=== PATIENT | female | born 1970 | race African-American/Black ===

== ENCOUNTER → 2020-12-17 13:23 | Outpatient (BNVA) | payer BC, SELFPAY | PROVIDERS: Visit Provider Urology ==

== ENCOUNTER 2022-01-14 08:34 | Outpatient (REF) | payer BC, SELFPAY ==
--- NOTE | ~2022-01-14 | US_ITS ---
EXAMINATION: US RETROPERITONEAL LIMITED (RENAL ONLY) CLINICAL INFORMATION: Calculus of kidney. COMPARISON: X-ray abdomen KUB 05/22/2020. TECHNIQUE: Real-time imaging of the kidneys. FINDINGS: RIGHT KIDNEY: 10.3 x 3.7 x 4.4 cm (SAG x AP x TRV). The kidney is normal in size, contour, and echogenicity. Renal cortical thickness is normal. There is a 2 x 3 mm echogenic density in the lower pole of the right kidney questionable for a small stone. No focal parenchymal lesions or hydronephrosis. LEFT KIDNEY: 11.0 x 6.0 x 4.8 cm (SAG x AP x TRV). The kidney is normal in size, contour, and echogenicity. Renal cortical thickness is normal. There is mild left hydronephrosis. There is a stone versus a cluster of stones in the central left kidney measuring 1.6 x 1 x 1.6 cm. No focal parenchymal lesions. US/US renal BI IMPRESSION: Central large stone versus cluster of stones in the midpole of the left kidney measuring 1.6 x 1 x 1.6 cm and mild left hydronephrosis. Question small right renal stone.
== END 2022-01-14 08:35 | disposition home or self-care (01) ==
LOC: HO.US 08:34
PROVIDERS: Visit Provider Urology
DX: N20.0 Calculus of kidney (principal)
CPT/HCPCS: 76775

== ENCOUNTER → 2022-02-22 13:31 | Outpatient (BNVA) | payer BC, SELFPAY | PROVIDERS: Visit Provider Urology | DX: Z13.89 Encounter for screening for other disorder (principal) ==

== ENCOUNTER → 2023-02-21 10:49 | Outpatient (BNVA) | payer BC, SELFPAY | PROVIDERS: PCP Internal Medicine Endocrinology, Diabetes & Metabolism; Visit Provider Urology | DX: Z13.89 Encounter for screening for other disorder (principal) ==

== ENCOUNTER 2024-01-26 08:27 | Outpatient (REF) | payer BC, SELFPAY ==
--- NOTE | ~2024-01-26 | US_ITS ---
EXAMINATION: US RETROPERITONEAL LIMITED (RENAL ONLY) CLINICAL INFORMATION: Calculus of kidney. COMPARISON: Renal ultrasound 01/14/2022. TECHNIQUE: Real-time imaging of the kidneys. FINDINGS: RIGHT KIDNEY: 9.8 x 4.2 x 5.4 cm (SAG x AP x TRV). The kidney is normal in size, contour, and echogenicity. Renal cortical thickness is normal. No focal parenchymal lesions or hydronephrosis. 2 mm nonobstructing calculus in the mid kidney. LEFT KIDNEY: 10.7 x 3.7 x 6.3 cm (SAG x AP x TRV). The kidney is normal in size, contour, and echogenicity. Renal cortical thickness is normal. No renal calculi or hydronephrosis. 2.5 cm calculus in the renal pelvis without hydronephrosis. US/US renal BI IMPRESSION: 2.5 cm calculus in the left renal pelvis without hydronephrosis. 2 mm calculus in the mid right kidney without hydronephrosis.
== END 2024-01-26 08:28 | disposition home or self-care (01) ==
LOC: HO.HMGCX 08:27
PROVIDERS: Visit Provider Urology
DX: N20.0 Calculus of kidney (principal)
CPT/HCPCS: 76775

== ENCOUNTER 2024-02-20 09:29 | Outpatient (AMB) | payer BC, SELFPAY ==
--- NOTE | 2024-02-20 09:34 | MHC.OFFVIS ---
Intake Visit Reasons: 1Y US(set) Intake Note: Patient is Present for Follow Up Urology Medication: Vitamin B6 Antibiotic Allergies: Penicillin, Erythromycin Blood Thinners:None Allergies Penicillins Allergy (Mild, Verified 02/20/24 09:35) Unknown Erythromycin Allergy (Mild, Uncoded 02/20/24 09:35) Unknown Medication List - Last Reconciled 02/20/24 by Carlos Champagne MD atorvastatin 10 mg PO DAILY doxycycline monohydrate 1 cap PO DAILY minoxidil 2.5 mg PO DAILY PRN pyridoxine (vitamin B6) 50 mg PO DAILY 90 days HPI Comments Details: Silvana Houser is a very pleasant female. She is a patient of Dr. Hayes. She is seen for the following urologic conditions. - nephrolithiasis Imaging shows continued left-sided caliceal cluster on renal ultrasound Review in 12 months Continue vitamin B6 Nephrolithiasis/Urolithiasis: KUB normal Refill vitamin B6 See in 12 months They are here for further evaluation of nephrolithiasis - has stone cluster on left side which a calyceal. Urolithiasis was diagnosed 2006. Has continued with microscopic hematuria.. Prior treatment(s) include lithotripsy 06/11 R [facility]. Prior imaging includes a CT (computed tomography) scan of the abdomen/pelvis (stone protocol) January 2015. Left upper pole calyceal diverticulum. Multiple small stones maximum 3.7 mm. 2 mm calyceal calculus in the left mid kidney, 2 mm calyceal calculus at the lower pole on the right kidney. - 03/08 - calyceal cluster on left - 03/09 , a renal ultrasound, a KUB x-ray - stable calyceal cluster on left, 4mm stone on right - 03/10 , a renal ultrasound, showing radiodense stone(s), 4 mm right, cluster on left 05/11 , a [facility]UB x-ray, , bilateral stone clusters 02/11 renal ultrasound left stone cluster question calcification on right - 02/13 ultrasound stable calyceal stone cluster left side Current therapeutic plan will be to continue with imaging surveillance, General advice to maintain good fluid intake for urine greater than 1.5 L per day, reduce salt and reduce protein and acid loads was provided.. Current symptoms include None . Cystoscopy of December 2014 negative. Cytology December 2014 negative . UA persistent today for microscopic hematuria. We discussed other causes PFSH Medical History Calyceal diverticulum High cholesterol Microscopic hematuria Surgical History History of lithotripsy Previous section Review of Systems Const Denies chills and Denies fever(s) Card Reports no additional complaints and Denies syncope Resp Denies cough GI Denies abdominal pain and Denies heartburn Reports as per HPI and Denies change in libido Neuro Denies syncope Psych Denies change in libido Endo Denies change in libido Physical Exam Const General: cooperative, healthy appearing, comfortable and no acute distress Orientation/consciousness: patient oriented x3 HEENT Face and sinus: Yes normal facial exam Mouth: moist mucous membranes Neck Neck: Yes normal visual inspection, Yes full ROM and Yes trachea midline Chest Chest palpation & inspection: normal inspection of the chest Resp Effort & Inspection: normal respiratory effort, able to speak in complete sentences and no respiratory distress GI Inspection: Yes normal to inspection Back/Spine/Pelvis Cervical Spine: normal cervical lordosis Thoracic/Lumbar Spine: thoracic and lumbar spine normal to inspection Skin General skin exam: no rashes or lesions noted Neuro General: patient oriented x3, gait normal, tone normal and moves all extremities Extrem General: Yes normal to inspection and Yes capillary refill normal Assessment & Plan Assessment & Plan (1) Nephrolithiasis: Code(s): N20.0 - Calculus of kidney Category: Medical Plan One year follow-up imaging Orders: Orders XR KUB 1 Year N20.0 - Calculus of kidney Medications: Refilled pyridoxine (vitamin B6) 50 mg PO DAILY 90 days 90 tabs 3RF N20.0 - Calculus of kidney Patient Instructions: Imaging studies, laboratory and physical exam results were discussed and reviewed in detail. No major barriers to patient understanding were identified. An opportunity to ask questions regarding the treatment plan was provided. All questions were answered. The patient expressed understanding and agreement with the above treatment plan. The patient is aware they should contact our office by phone for worsening of their current condition or the appearance of new urologic symptoms. Compliance is encouraged with any medications and followup testing that is ordered. It is a privilege to participate in the urologic care of your patient. If you have any questions or concerns regarding treatment for the above conditions, or other urologic issues, please do not hesitate to contact me. The office telephone contact is [phone]. This note is constructed using voice recognition software. While every effort has been made to ensure accuracy barrel coater errors may have been included. Yours sincerely, Dr Carlos Champagne MD, [facility] - Urology Providers of Expert, Compassionate Care for the Genitourinary System Coding Level of Care Code Est Pt Level 4 (10331) Diagnoses Nephrolithiasis N20.0
== END 2024-02-20 10:03 | disposition home or self-care (01) ==
PROVIDERS: Visit Provider Urology
DX: N20.0 Calculus of kidney (principal)
CPT/HCPCS: 99213

== ENCOUNTER → 2024-02-20 09:29 | Outpatient (BNVA) | payer BC, SELFPAY | PROVIDERS: Visit Provider Urology ==

== ENCOUNTER 2025-05-02 09:06 | Outpatient (AMB) | payer BC, SELFPAY ==
--- NOTE | 2025-05-02 09:07 | MHC.OFFVIS ---
Intake Visit Reasons: Follow up/ KUB Intake Note: Patient is present for KUB F/U Urology Medication:VITAMIN B6 Antibiotic Allergy:PENICILLINS,ERYTHROMYCIN Blood Thinner:NONE Accounts Receivable Associate Required: No Allergies Penicillins Allergy (Mild, Verified 05/02/25 09:09) Unknown Erythromycin Allergy (Mild, Uncoded 05/02/25 09:09) Unknown HPI Comments Details: Silvana Houser is a very pleasant female. She is a patient of Dr. Hayes. She is seen for the following urologic conditions. - nephrolithiasis Imaging shows continued left-sided caliceal cluster on KUB Continue vitamin B6 She would like to continue 12 month follow-up Nephrolithiasis/Urolithiasis: KUB normal Refill vitamin B6 See in 12 months They are here for further evaluation of nephrolithiasis - has stone cluster on left side which a calyceal. Urolithiasis was diagnosed 2006. Has continued with microscopic hematuria.. Prior treatment(s) include lithotripsy 06/11 [facility]. Prior imaging includes a CT (computed tomography) scan of the abdomen/pelvis (stone protocol) January 2015. Left upper pole calyceal diverticulum. Multiple small stones maximum 3.7 mm. 2 mm calyceal calculus in the left mid kidney, 2 mm calyceal calculus at the lower pole on the right kidney. - 03/08 - calyceal cluster on left - 03/09 , a renal ultrasound, a KUB x-ray - stable calyceal cluster on left, 4mm stone on right - 03/10 , a renal ultrasound, showing radiodense stone(s), 4 mm right, cluster on left 05/11 , a KUB x-ray, , bilateral stone clusters 02/11 renal ultrasound left stone cluster question calcification on right - 02/13 ultrasound stable calyceal stone cluster left side - 03/16 KUB stone cluster Current therapeutic plan will be to continue with imaging surveillance, General advice to maintain good fluid intake for urine greater than 1.5 L per day, reduce salt and reduce protein and acid loads was provided.. Current symptoms include None . Cystoscopy of December 2014 negative. Cytology December 2014 negative . UA persistent today for microscopic hematuria. We discussed other causes [facility] Medical History (Updated 05/02/25 @ 09:29 by Carlos Champagne MD) High cholesterol Microscopic hematuria Calyceal diverticulum Surgical History Previous section History of lithotripsy Review of Systems Const Denies chills and Denies fever(s) Card Reports no additional complaints and Denies syncope Resp Denies cough GI Denies abdominal pain and Denies heartburn Reports as per HPI and Denies change in libido Neuro Denies syncope Psych Denies change in libido Endo Denies change in libido Physical Exam Const General: cooperative, healthy appearing, comfortable and no acute distress Orientation/consciousness: patient oriented x3 HEENT Face and sinus: Yes normal facial exam Mouth: moist mucous membranes Neck Neck: Yes normal visual inspection, Yes full ROM and Yes trachea midline Chest Chest palpation & inspection: normal inspection of the chest Resp Effort & Inspection: normal respiratory effort, able to speak in complete sentences and no respiratory distress GI Inspection: Yes normal to inspection Back/Spine/Pelvis Cervical Spine: normal cervical lordosis Thoracic/Lumbar Spine: thoracic and lumbar spine normal to inspection Skin General skin exam: no rashes or lesions noted Neuro General: patient oriented x3, gait normal, tone normal and moves all extremities Extrem General: Yes normal to inspection and Yes capillary refill normal Assessment & Plan Assessment & Plan (1) Nephrolithiasis: Code(s): N20.0 - Calculus of kidney Category: Medical (2) Calyceal diverticulum: Code(s): N28.89 - Other specified disorders of kidney and ureter Category: Medical Plan Twelve month follow-up Orders: Orders XR KUB 12 Months N20.0 - Calculus of kidney Patient Instructions: This note is constructed using voice recognition software. While every effort has been made to ensure accuracy technical service rep errors may have been included. Imaging studies, laboratory and physical exam results were discussed and reviewed in detail. No major barriers to patient understanding were identified. An opportunity to ask questions regarding the treatment plan was provided. All questions were answered. The patient expressed understanding and agreement with the above treatment plan. The patient is aware they should contact our office by phone for worsening of their current condition or the appearance of new urologic symptoms. Compliance is encouraged with any medications and followup testing that is ordered. It is a privilege to participate in the urologic care of your patient. If you have any questions or concerns regarding treatment for the above conditions, or other urologic issues, please do not hesitate to contact me. The office telephone contact is [phone]. Sincerely, Dr Carlos Champagne MD, [facility] - Urology Compassionate Specialist Care for the Genitourinary System Coding Level of Care Code Est Pt Level 4 (08073) Diagnoses Nephrolithiasis N20.0 Calyceal diverticulum N28.89
--- OUTSIDE RECORDS SUMMARY | 2025-05-02 09:20 | XMS_ITS | Clinical Summary ---
Author Organization [facility] Address [address] [place] [address] Care Team Providers Care Gear Repairer Name Role Phone Unavailable Primary Care Provider Unavailabl e Source Comments PLEASE NOTE, if this patient is a minor, it may be UNLAWFUL to discuss sensitive information that is contained in these records (such as FAMILY PLANNING, MENTAL HEALTH or SUBSTANCE ABUSE) with the minor patient's parent or other person without the patient's specific authorization.[facility] Immunizations Immunization Administration Dates Next Due PFIZER COVID VACCINE, PURPLE CAP, 12+ 08/31/2021 Social History Tobacco Use Types Packs/Day Years Used Date Smoking Tobacco: Never Assessed Social Connections Answer Date Recorded Connectedness 0 07/04/2024 Financial Resource Strain Answer Date R ecorded Financial Resource Strain 0 2021 Stress Answer Date Recorded Stress 0 12/08/2021 Physical Activity Answer Date Recorded Physical Activity 0 12/08/2021 Food Insecurity Answer Date Recorded Food 0 07/18/2024 Transportation Needs Answer Date Record ed Transportation 0 12/08/2021 Housing Stability Answer Date Recorded Housing 0 12/08/2021 Safety and Environment Answer Date Chavo rded Safety 0 12/08/2021 Utilities Answer Date Recorded Utilities 0 12/08/2021 Employment Answer Date Recorded Stress 0 07/04/2024 Comments Unknown Sex and Gender Information Value Date Recorded Sex Assigned at Not on file Legal Sex Female 5:40 AM PDT Gender Identity Not on file Sexual Orientation Not on file Plan of Treatment Health Maintenance Due Date Last Done Comments Anxiety Screening 1968 Diabetes Screening 1968 HPV Screening 1968 Hepatitis C Screening 1968 Lipid Screening 1968 Pap + HPV 1968 Tobacco Screening 1968 HIV Screening 1983 Hypertension Screening (#1) 1986 Imm-Hepatitis B (1 of 3 - 19 + 3-dose series) 1987 Cervical Cancer Screening 1989 Pap Smear 1989 Breast Cancer Screening (Mammogram) 2008 CT Colonography 2013 Colonoscopy 2013 Colorectal Cancer Screening 2013 FIT/gFOBT 2013 Fecal DNA 2013 Flexible Sigmoidoscopy 2013 Imm-Zoster, Recombinant (1 of 2) 2018 Imm-DTaP/Tdap/Td (2 - Td or Tdap) 07/06/2022 012, 03/30/2007 Plv-CDAOH-31 ( season) 2024 08/31/2021, 02/11/2021, 01/21/2021 Alcohol and Drug Screen 10/23/2024 Depression Annual Screen 10/23/2024 Imm-Influenza (Season Ended) 2025 Cervical Ablation/Cold-Knife Conization Discontinued Cervical Cryotherapy Discontinued Colposcopy Discontinued Endometrial Biopsy Discontinued Excision/Leep Discontinued HPV Genotyping Discontinued Vaginal Pap Discontinued Vulvoscopy Discontinued Insurance BLUE CROSS/BS [place]ARI
--- OUTSIDE RECORDS SUMMARY | 2025-05-02 09:20 | XMS_ITS | Clinical Summary ---
Author Organization [facility] [address] [facility] Address [address] [place] [address] Phone Care Team Providers Care Locker Operator Name Role Phone Melissa Goodwin DO Primary Care Provider [phone] Encounters Date Type Department Care Team Description 04/12/2025 10:54 AM EDT - 04/12/2025 11:59 PM EDT Hospital Encounter Radiology Department - [address] [phone] Encounter for screening mammogram for breast cancer Discharge Disposition: Home or Self Care 02/21/2025 1:04 PM EDT - 02/21/2025 11:59 PM EDT [facility] [address] [place] [address] Calculus of kidney Discharge Disposition: Home or Self Care from Last 3 Months Surgical History Surgery Date Site/Laterality Comments SECTION PROCEDURE: AR DELIVERY ONLY; COMMENT: x 2 COLONOSCOPY 04/23/07 PROCEDURE: AR COLONOSCOPY STOMA DX INCLUDING COLLJ SPEC SPX; COMMENT: normal, incomplete OTHER SURGICAL HISTORY 04/28 PROCEDURE: CHG RADIOLOGIC EXAM COLON DOUBLE CONTRAST STUDY; COMMENT: neg TUBAL LIGATION 07/30 PROCEDURE: HISTORICAL TUBAL LIGATION; COMMENT: COLONOSCOPY 05/30/2014 PROCEDURE: AR COLONOSCOPY FLX DX W/COLLJ SPEC WHEN PFRMD; COMMENT: Neg to cecum. R 2023 Medical History Medical History Date Comments Urinary calculus, unspecified 03/09/2007 DX :Urinary calculus, unspecified; COMMENT: Lithotripsy Hematuria 12/04/2009 DX:Hematuria GI bleed 12/04/2009 DX:GI bleed Cholelithiasis 02/29/2016 DX:Cholelithiasi s Family History Medical History Relation Name Comments Colon cancer Aunt 1 maternal aunt 1 Colon cancer Aunt 2 maternal aunt 3 Breast cancer Aunt 3 m.aunt maternal aunt 4 No Known Problems Brother No Known Problems Father No Known Problems Maternal Grandfather Diabetes Maternal Grandmother Hypertension Maternal Grandmother No Known Problems Mother Thyroid disease Other 1 Niece & Neph ew Uterine cancer Other 2 maternal 1st cousin 1 Colon cancer Other 3 niece 1 Breast cancer Other 4 maternal 1st c ousin 2 Breast cancer Other 5 maternal great aunt 1 No Known Problems Paternal Grandfather Diabetes Paternal Grandmother No Known Problems Sister Other: Diabetes Mellitus Uncle 1 mat ; niece Colon cancer Uncle 2 maternal uncle 1 Colon cancer Uncle 3 maternal uncle 2 Blindness Neg Hx Breast cancer Neg Hx Cataracts Neg Hx Glaucoma Neg Hx Macular degeneration Neg Hx Strabismus Neg Hx Relation Name Status Comments Aunt 1 Aunt 2 Aunt 3 m.aunt Brother Father Maternal Grandfather Maternal Grandmother Mother Other 1 Other 2 Other 3 Other 4 Other 5 Paternal Grandfather Paternal Grandmother Sister Uncle 1 Uncle 2 Uncle 3 Social History Tobacco Use Types Packs/Day Years Used Date Smoking Tobacco: Never Smokeless Tobacco: Never Alcohol Use Standard Drinks/Week Comments Not Currently 0 (1 standard drink = 0.6 oz pur e alcohol) Comments Unknown Sex and Gender Information Value Date Recorded Sex Assigned at Not on file Legal Sex Female 6:46 AM EST Gender Identity Not on file Sexual Orientation Not on file Obstetrics History Para Term AB IAB SAB Ectopic Multiple Livin g Live Births 2 2 2 2 Date Outcome GA Total Labor Labor/2nd/3rd Weight Sex Type Anes PTL Camryn A1 A5 Name Clin Term Term Last Filed Vital Signs Vital Sign Reading Time Taken Comments Blood Pressure 118/78 2023 2:53 PM EST Sit ting R Leg Pulse 71 2023 2:53 PM EST Temperature - - Respiratory Rate - - Oxygen Saturation - - Inhaled Oxygen Concentration - - Weight 71.2 kg (157 lb) 2023 2:53 PM EST Height 154.9 cm (5' 1 ) 2023 2:53 PM EST Body Mass Index 29.67 2023 2:53 PM EST Plan of Treatment Upcoming Encounters Date Type Department Care Team (Late st Contact Info) Description 06/10/2025 2:00 PM EDT Office Visit Internal Medicine - [facility] [address] [place], [place] [phone] Lizbet Snow NP [address] [place] [address] Health Maintenance Due Date Last Done Comments Hepatitis B Vaccines (1 of 3 - 19+ 3-dose series) 1987 Pneumococcal Vaccine: 50+ Years (1 of 1 - PCV) 2018 Zoster Vaccines (1 of 2) 2018 Cervical Cancer Screening: Pap Smear 06/28/2022 06/28/2019 Cholesterol Screening (Lipid Panel) 10/01/2022 Colorectal Cancer Screening: Colonoscopy 10/01/2022 Depression Screening 10/01/2022 HIV Screening 10/01/2022 Hepatitis C Screening 10/01/2022 Social Influencers of Health Screening 10/01/2022 COVID-19 Vaccine (4 - season) 2024 08/31/2021, 02/11/2021, 01/21/2021 Influenza Vaccine (#1) 2025 Breast Cancer Screening 04/12/2027 04/12/20, 03/23/2024, 03/23/2024, Additional history exists DTaP,Tdap,and Td Vaccines (4 - Td or Tdap) 01/04/2033 01/04/2023, 07/06/2012, 03/30/2007 HIB Vaccines Aged Out No longer eligi ble based on patient's age to complete this topic HPV Vaccines Aged Out No longer eligi ble based on patient's age to complete this topic Hepatitis A Vaccines Aged Out No long er eligible based on patient's age to complete this topic IPV Vaccines Aged Out No longer eligi ble based on patient's age to complete this topic MMR Vaccines Aged Out No longer eligi ble based on patient's age to complete this topic Meningococcal ACWY Vaccine Aged Out N o longer eligible based on patient's age to complete this topic Meningococcal B Vaccine Aged Out No l onger eligible based on patient's age to complete this topic Pneumococcal Vaccine: Pediatrics (0 to 5 Years) and At-Risk Patients (6 to 49 Years) Aged Out No longer eligible based on patient's age to complete this topic RSV Immunization Patients Under 20 months Aged Out No longer eligible based on patient's age to complete this topic Varicella Vaccines Aged Out No longer eligible based on patient's age to complete this topic Procedures Procedure Name Priority Date/Time Associated Diagnosis Comments MG MAMMO DIGITAL SCREENING W CARRIE BILAT Routine 04/12/2025 11:09 AM EDT Encounter for screening mammogram for breast cancer XR ABDOMEN 1 VIEW Routine 02/21/2025 1:1 3 PM EDT Calculus of kidney PAP SMEAR Routine 06/28/2019 from Last 3 Months or Most Recently Relevant to Health Maintenance Results * MG Mammo Digital Screening w Carrie bilat (04/12/2025 11:09 AM EDT) Anatomical Region Laterality Modality Breast Bilateral Mammography 04/14/2025 4:04 PM EDT Impressions 04/14/2025 4:04 PM EDT No mammographic evidence of malignancy. BREAST DENSITY: C - The breasts are heterogeneously dense which may obscure small masses. BI-RADS CATEGORY: 1 - NEGATIVE RECOMMENDATION: Screening bilateral mammogram is recommended in 1 year. MAMMO LOCATION: [facility], [address] [place] [address], [id number], . -------- FINAL REPORT -------- Dictated By: Fannie Daley Dictated Date: 04/14/2025 16:04 ET Assigned Physician: Fannie Daley Reviewed and Electronically Signed By: Fannie Daley Signed Date: 04/14/2025 16:04 ET Workstation ID: [id number] Transcribed By: Self Edit Transcribed Date: 04/14/2025 16:04 ET Narrative 04/14/2025 4:04 PM EDT EXAM: Screening Mammogram CLINICAL: 54 years old, Female, routine annual exam. COMPARISON: 03/23/2024 and as far back as 01/28/2021 TECHNIQUE: Bilateral MLO and CC views were obtained digitally with 3-D mammogram (digital breast tomosynthesis). Computer-aided detection was utilized in evaluation of this exam (CAD). FINDINGS: No new suspicious mass, architectural distortion, or suspicious calcifications. Procedure Note Fannie Daley MD - 04/14/2025 EXAM: Screening Mammogram CLINICAL: 54 years old, Female, routine annual exam. COMPARISON: 03/23/2024 and as far back as 01/28/2021 TECHNIQUE: Bilateral MLO and CC views were obtained digitally with 3-Dmammogram (digital breast tomosynthesis). Computer-aided detection wasutilized in evaluation of this exam (CAD). FINDINGS: No new suspicious mass, architectural distortion, or suspiciouscalcifications. IMPRESSION: No mammographic evidence of malignancy. BREAST DENSITY: C - The breasts are heterogeneously dense which mayobscure small masses. BI-RADS CATEGORY: 1 - NEGATIVE RECOMMENDATION: Screening bilateral mammogram is recommended in 1 year. MAMMO LOCATION: [facility], [address] [place] [address], [id number], . -------- FINAL REPORT -------- Dictated By: Fannie Daley Dictated Date: 04/14/2025 16:04 ET Assigned Physician: Fannie Daley Reviewed and Electronically Signed By: Fannie Daley Signed Date: 04/14/2025 16:04 ET Workstation ID: [id number] Transcribed By: Self Edit Transcribed Date: 04/14/2025 16:04 ET Melissa Goodwin DO IMG BI PROCEDURES Final Result * XR Abdomen 1 View (02/21/2025 1:13 PM EDT) Anatomical Region Laterality Modality Body Radiographic Dorothy ging 02/21/2025 5:22 PM EDT Impressions 02/21/2025 5:25 PM EDT Multiple rounded calcifications overlying the region of the left kidney grossly stable from prior exam. -------- FINAL REPORT -------- Dictated By: Shai Hurtado Dictated Date: 02/21/2025 17:22 ET Assigned Physician: Shai Hurtado Reviewed and Electronically Signed By: Shai Hurtado Signed Date: 02/21/2025 17:25 ET Workstation ID: [id number] Transcribed By: Self Edit Transcribed Date: 02/21/2025 17:22 ET Narrative 02/21/2025 5:25 PM EDT HISTORY: calculus of kidney TECHNIQUE: AP radiographs of the abdomen COMPARISON: Abdominal radiograph from 03/06/2018, ultrasound abdomen from 09/07/2023 FINDINGS: Two views of the abdomen again demonstrate multiple rounded calcifications overlying the region of the left kidney measuring 2.2 x 1.6 cm. This is not significantly changed from the prior examination. Moderate stool throughout the colon. The sacroiliac joints are patent. Procedure Note Shai Hurtado MD - 02/21/2025 HISTORY: calculus of kidney TECHNIQUE: AP radiographs of the abdomen COMPARISON: Abdominal radiograph from 03/06/2018, ultrasound abdomen from09/07/2023 FINDINGS: Two views of the abdomen again demonstrate multiple rounded calcificationsoverlying the region of the left kidney measuring 2.2 x 1.6 cm. This isnot significantly changed from the prior examination. Moderate stoolthroughout the colon. The sacroiliac joints are patent. IMPRESSION: Multiple rounded calcifications overlying the region of the left kidneygrossly stable from prior exam. -------- FINAL REPORT -------- Dictated By: Shai Hurtado Dictated Date: 02/21/2025 17:22 ET Assigned Physician: Shai Hurtado Reviewed and Electronically Signed By: Shai Hurtado Signed Date: 02/21/2025 17:25 ET Workstation ID: [id number] Transcribed By: Self Edit Transcribed Date: 02/21/2025 17:22 ET Carlos Champagne MD IMG XR PROCEDURES Final Resul t * Pap smear (06/28/2019) 06/28/2019 Narrative HISTORICAL TESTING LAB RESULTING AGENCY - 07/02/2019 3:06 PM EDT [id number] THINPREP PAP, IMAGED: NEGATIVE FOR SQUAMOUS INTRAEPITHELIAL LESION AND MALIGNANCY . RONI JARAMILLO(ASCP) (CASE ELECTRONICALLY SIGNED 07 02 2019) RESULT OF APTIMA HIGH RISK HPV ASSAY: HIGH RISK HPV: NEGATIVE (SEROTYPES 16,18,31,33,35,39,45,51,52,56,58,59,66,68) COMPLETED ON 2019-07-02 ADEQUACY: SATISFACTORY ENDOCERVICAL/TRANSFORMATION ZONE COMPONENT ABSENT. SOURCE: THINPREP PAP HPV ANY DX: REFLEX 16 AND 18, CERVICAL, IMAGED CLINICAL INFORMATION: Z12.4, , PAP HX NEG, HPV ANY DIAGNOSIS. Miley Gonzalez DO LAB CYTOLOGY ORDERABLES Final Result HISTORICAL TESTING LAB RESULTING AGENCY from Last 3 Months or Most Recently Relevant to Health Maintenance Insurance [facility] Care Teams Locker Operator Relationship Specialty Start Date End Date Melissa Goodwin DO [address] [place] [address] PCP - General 08/01/23
== END 2025-05-02 09:29 | disposition home or self-care (01) ==
LOC: HO.HUSH 09:06
PROVIDERS: Visit Provider Urology
DX: N20.0 Calculus of kidney (principal); N28.89 Other specified disorders of kidney and ureter
CPT/HCPCS: 99214